=== PATIENT | female | born 1965 | race Two or more races ===

== ENCOUNTER 2021-01-07 18:51 | Emergency (ER) | payer SELFPAY ==
[~2021-01-07] VITALS: Ht 144.8 cm; Wt 73.0 kg
--- NOTE | 2021-01-07 19:11 | Emergency Room Report ---
History of Present Illness General Chief Complaint: Headache Source: Patient Present Illness HPI Disclaimer: Please note that this report is being documented using DRAG[employer] technology. This can lead to erroneous entry secondary to incorrect interpretation by the dictating instrument. HPI: 55-year-old female presents for evaluation of headache. She reports occipital tension and throbbing pain for the past week. Denies trauma. Denies nausea or vomiting. Denies changes in hearing, balance or coordination or vision. Has been using Tylenol without significant help. Headaches seem to be worse at night. Over the past 3 days she notes intermittent yoej-uzu-xqliewq sensation over the right upper lip. Denies changes in motor function, strength, coordination otherwise. No prior history of migraines. Takes no other medications. PMH: Denied PSH: Reviewed Allergies: Denied Social Hx: Non-smoker Allergies: Coded Allergies: No Known Allergies (Unverified , 01/07/21) COVID-19 Screening Contact w/high risk pt: No Experienced COVID-19 symptoms?: No COVID-19 Testing performed MANAGER OPERATIONS: Yes COVID-19 Screening: Negative COVID-19 COVID-19 Testing Source: nasal Nursing Documentation-PMH Past Medical History: No Stated History Review of Systems All Other Systems: negative except mentioned in HPI Physical Exam Vital Signs Date Time Temp Pulse Resp B/P (MAP) Pulse Ox O2 Delivery O2 Flow Rate FiO2 01/07/21 18:58 97.5 73 16 142/87 (105) 98 Room Air General: Awake and alert, no acute distress HEENT: NC/AT. EOMI. PERRLA. Visual pickett are full. No nystagmus. Facial expressions are symmetrical. No facial droop. Cardiovascular: RRR. S1 and S2 normal. No murmur appreciated Resp: Normal work of breathing. No cough, wheezing or crackles appreciated Abdomen: Abdomen is soft, nondistended. Nontender Skin: Intact. No abrasions, laceration or rash over the exposed skin MSK: Normal tone and bulk. Moving all extremities. No obvious deformity. There is no drift in the upper or lower extremities bilaterally. Neuro: Awake and alert. Mentating appropriately. Facial expression symmetrical. No dysarthria, no ataxia on xasexp-pwtv-qwfjbw or pesn-sn-lubf testing. Sensation to light touch is intact over the upper and lower extremities. The patient has intact speech with good repetition, comprehension. Fund of knowledge is full. No aphasia, no neglect. NIH: 0 Medical Decision Making Diagnostic Impression: Primary Impression: Headache ER Course 55-year-old female presents for evaluation of 1 week headache. Differential includes was not limited to tension headache, cluster headache, migraine headache, complex migraine, generalized headache, intracranial bleed, new cranial mass among others. CT scan was obtained finds no mass, no bleed and no other abnormalities. Patient's NIH score is 0. Received migraine cocktail consisting of IV fluids, Toradol, Reglan and Benadryl which resolved her headache. She had some tension in the back of her neck for which I will prescribe Robaxin. She will follow up with her clinic for referral to neurology to further investigate headache should they return. Instructed to return new or worsening symptoms. CT/MRI/US Diagnostic Results CT/MRI/US Diagnostic Results : Impression Final Report EXAM: CT Head Without Intravenous Contrast CLINICAL HISTORY: H/A TECHNIQUE: Axial computed tomography images of the head/brain without intravenous contrast. CTDI is 53.4 mGy and DLP is 965.4 mGy-cm. One or more of the following dose r eduction techniques were used: automated exposure control, adjustment of the mA and/or kV according to patient size, use of iterative reconstruction technique. COMPARISON: No relevant prior studies available. FINDINGS: Brain: No hemorrhage, edema or evidence of mass-effect. No significant white matter disease. Ventricles: Unremarkable. No ventriculomegaly. Bones/joints: Unremarkable. Soft tissues: Unremarkable. Sinuses: Unremarkable as visualized. Mastoid air cells: No mastoid effusion. Orbits: Symmetric. IMPRESSION: Normal head/brain CT. Radiologist: Naseem Lucas M.D. Electronically Signed: 01/07/21 21:21 Study ready at 21:07 and initial results transmitted at 21:21 Last Vital Signs Date Time Temp Pulse Resp B/P (MAP) Pulse Ox O2 Delivery O2 Flow Rate FiO2 01/07/21 18:58 97.5 73 16 142/87 (105) 98 Room Air Disposition: HOME, SELF-CARE Condition: Stable Scripts Methocarbamol* (ROBAXIN-750*) 750 Mg Tablet 750 MG PO QID, #28 TAB 0 Refills Prov: Titi Wynn MD 01/07/21 Titi Wynn MD Jan 07, 2021 19:11
--- NOTE | 2021-01-07 19:28 | NUR ---
ED Nurse Note: Pt ambulated into ED. AAO x4. C/O posterior head pain x1 week with right side facial numbness.
[2021-01-07 20:47] VITALS: BP 114/64
--- NOTE | 2021-01-07 20:47 | NUR ---
ED Nurse Note: CT has been closed down for terminal clean. Pt is resting. No new needs identified at this time.
--- NOTE | 2021-01-07 21:10 | NUR ---
ED Nurse Note: Pt returned from CT. No new needs identified at this time.
--- NOTE | 2021-01-07 21:21 | Diagnostic Imaging Report ---
EXAM: CT Head Without Intravenous Contrast CLINICAL HISTORY: H/A TECHNIQUE: Axial computed tomography images of the head/brain without intravenous contrast. CTDI is 53.4 mGy and DLP is 965.4 mGy-cm. One or more of the following dose reduction techniques were used: automated exposure control, adjustment of the mA and/or kV according to patient size, use of iterative reconstruction technique. COMPARISON: No relevant prior studies available. FINDINGS: Brain: No hemorrhage, edema or evidence of mass-effect. No significant white matter disease. Ventricles: Unremarkable. No ventriculomegaly. Bones/joints: Unremarkable. Soft tissues: Unremarkable. Sinuses: Unremarkable as visualized. Mastoid air cells: No mastoid effusion. Orbits: Symmetric. IMPRESSION: Normal head/brain CT.
[2021-01-07] MEDS ORDERED: Metoclopramide 10mg/2ml Inj IVP ONE (21:30)
[2021-01-07] MEDS ORDERED: DiphenhydrAMINE 50mg/ml Inj IVP ONE (21:30)
[2021-01-07] MEDS ORDERED: Ketorolac 30mg Inj IV ONE (21:30)
[2021-01-07] MEDS ORDERED: ROBAXIN-750750 MG PO (21:43)
--- NOTE | 2021-01-07 21:45 | NUR ---
ED Nurse Note: Pt returned from CT. IV started, medications administered as ordered. Pt reports no new needs at this time.
[2021-01-07 21:46] VITALS: BP 121/57
--- NOTE | 2021-01-07 22:18 | NUR ---
ED Nurse Note: [phone] [place]
--- NOTE | 2021-01-07 23:05 | NUR ---
ER DISCHARGE NOTE: Patient is cleared to be discharged per ER MD, pt is aao x4, on room air, with stable vital signs. pt was given d/c and prescription instructions, pt was able to verbalize understanding, pt id band and iv site removed without complications. pt is able to ambulate with steady gait. pt took all belongings.
[2021-01-07 23:06] VITALS: BP 100/60
== END 2021-01-07 23:07 | disposition home or self-care (01) ==
LOC: EMR 19:30
DX: R51.9 Headache, unspecified (principal)
CPT/HCPCS: 70450; 96361; 96374; 96375; 99284; J1200; J1885; J2765; J7030

== ENCOUNTER 2021-01-13 12:26 | Emergency (ER) | payer SELFPAY ==
[~2021-01-13] VITALS: Ht 149.9 cm; Wt 68.5 kg
[~2021-01-13 12:26] MED LIST: ROBAXIN-750750 MG PO
--- NOTE | 2021-01-13 12:46 | NUR ---
ED Nurse Note: Dr Velazquez was notified of patient's symtoms of mouth numbness, headache and weakness x 4 days.
--- NOTE | 2021-01-13 16:07 | Emergency Room Report ---
History of Present Illness General Chief Complaint: Generalized Weakness Source: Patient Present Illness HPI Disclaimer: Please note that this report is being documented using [employer] technology. This can lead to erroneous entry secondary to incorrect interpretation by the dictating instrument. HPI: 55-year-old female presents for evaluation of headache. Patient was seen in the emergency department last week with similar complaints of intermittent headache and facial numbness/paresthesias on the left side above the left lip. Currently she is asymptomatic. CT scan was performed and unremarkable. She was sent to follow-up with her PMD. She has been having the symptoms persistently over the past few days and her PMD sent her to the ED for MRI. PMH: Reviewed PSH: Reviewed Allergies: Denied Social Hx: Non-smoker Allergies: Coded Allergies: No Known Allergies (Unverified , 01/07/21) COVID-19 Screening Contact w/high risk pt: No Experienced COVID-19 symptoms?: No COVID-19 Testing performed PERSONALIZATION SPECIALIST: No Nursing Documentation-PMH Past Medical History: No Stated History Review of Systems All Other Systems: negative except mentioned in HPI Physical Exam Vital Signs Date Time Temp Pulse Resp B/P (MAP) Pulse Ox O2 Delivery O2 Flow Rate FiO2 01/13/21 12:40 97.9 75 16 132/84 (100) 97 Room Air General: Awake and alert, no acute distress HEENT: NC/AT. EOMI. PERRLA. Visual pickett are full. No nystagmus. Facial expressions are symmetrical. No facial droop. Cardiovascular: RRR. S1 and S2 normal. No murmur appreciated Resp: Normal work of breathing. No cough, wheezing or crackles appreciated Abdomen: Abdomen is soft, nondistended. Nontender Skin: Intact. No abrasions, laceration or rash over the exposed skin MSK: Normal tone and bulk. Moving all extremities. No obvious deformity. There is no drift in the upper or lower extremities bilaterally. Neuro: Awake and alert. Mentating appropriately. Facial expression symmetrical. No dysarthria, no ataxia on hmkawq-qkvw-efrfll or kzkm-xl-zerf testing. Sensation to light touch is intact over the upper and lower extremities. The patient has intact speech with good repetition, comprehension. Fund of knowledge is full. No aphasia, no neglect. NIH: 0 Medical Decision Making Diagnostic Impression: Primary Impression: Headache Additional Impressions: Elevated liver enzymes Small vessel disease ER Course 55-year-old female returns to the ER complaining of persistent headaches and left-sided facial paresthesias. Sent in by PMD for MRI. Differential includes is not limited to migraine headache with complex feature, Martin's palsy, CVA, trigeminal neuralgia, space-occupying lesion, peripheral nerve issue, giant cell arteritis. MRI shows likely small vessel disease but no infarct, no mass, no bleed. Labs show slightly elevated liver enzymes. May be fatty liver. This can be followed up by her PMD. Otherwise, ESR and CRP are negative making giant cell arteritis unlikely. Patient may have trigeminal neuralgia but given her elevated liver function studies I will not start carbamazepine at this time instead will elect to give a short prescription for sumatriptan. She can f ollow-up with her PMD for referral to neurology regarding today's work-up and recent headaches. Stable for outpatient follow-up. Instructed to return with new or worsening symptoms. Laboratory Tests Test 01/13/21 17:31 White Blood Count 7.1 K/UL (4.8-10.8) Red Blood Count 4.87 M/UL (4.20-5.40) Hemoglobin 14.9 G/DL (12.0-16.0) Hematocrit 44.4 % (37.0-47.0) Mean Corpuscular Volume 91 FL (80-99) Mean Corpuscular Hemoglobin 30.6 PG (27.0-31.0) Mean Corpuscular Hemoglobin Concent 33.6 G/DL (32.0-36.0) Red Cell Distribution Width 13.0 % (11.6-14.8) Platelet Count 205 K/UL (150-450) Mean Platelet Volume 10.5 FL (6.5-10.1) H Neutrophils (%) (Auto) 40.0 % (45.0-75.0) L Lymphocytes (%) (Auto) 49.4 % (20.0-45.0) H Monocytes (%) (Auto) 8.0 % (1.0-10.0) Eosinophils (%) (Auto) 1.3 % (0.0-3.0) Basophils (%) (Auto) 1.4 % (0.0-2.0) Erythrocyte Sedimentation Rate 13 MM/HR (0-30) Sodium Level 141 MMOL/L (136-145) Potassium Level 4.8 MMOL/L (3.5-5.1) Chloride Level 106 MMOL/L (98-107) Carbon Dioxide Level 26 MMOL/L (21-32) Anion Gap 10 mmol/L (5-15) Blood Urea Nitrogen 11 mg/dL (7-18) Creatinine 0.6 MG/DL (0.55-1.30) Estimated Glomerular Filtration Rate > 60 mL/min (>60) Glucose Level 119 MG/DL (74-106) H Calcium Level 9.5 MG/DL (8.5-10.1) Phosphorus Level 3.5 MG/DL (2.5-4.9) Magnesium Level 2.3 MG/DL (1.8-2.4) Total Bilirubin 0.7 MG/DL (0.2-1.0) Direct Bilirubin 0.1 MG/DL (0.0-0.3) Aspartate Amino Transferase (AST) 160 U/L (15-37) H Alanine Aminotransferase (ALT) 147 U/L (12-78) H Alkaline Phosphatase 207 U/L (46-116) H C-Reactive Protein, Quantitative < 0.4 mg/dL (0.00-0.90) Total Protein 8.4 G/DL (6.4-8.2) H Albumin 4.0 G/DL (3.4-5.0) CT/MRI/US Diagnostic Results CT/MRI/US Diagnostic Results : Impression Final Report EXAM: MR Head Without Intravenous Contrast CLINICAL HISTORY: H/A TECHNIQUE: Magnetic resonance images of the head/brain without intravenous contrast in multiple planes. COMPARISON: 01/07/2021. FINDINGS: Brain: Minimal increased T2 signal in the periventricular and subcortical cerebral white matter. No hemorrhage. No acute infarct. Ventricles: Unremarkable. No ventriculomegaly. Bones/joints: Unremarkable. Sinuses: Unremarkable as visualized. No acute sinusitis. Mastoid air cells: Unremarkable as visualized. No mastoid effusion. Orbits: Unremarkable as visualized. IMPRESSION: 1. No acute infarction. No acute intracranial pathology. 2. Minimal increased T2 signal in the periventricular and subcortical cerebral white matter. Findings are nonspecific but commonly chronic small vessel ischemic disease. Radiologist: Mukesh Redd MD Electronically Signed: 01/13/21 17:43 Study ready at 17:30 and initial results transmitted at 17:43 Last Vital Signs Date Time Temp Pulse Resp B/P (MAP) Pulse Ox O2 Delivery O2 Flow Rate FiO2 01/13/21 12:40 97.9 75 16 132/84 (100) 97 Room Air Disposition: HOME, SELF-CARE Condition: Stable Scripts Sumatriptan Succinate* (IMITREX*) 50 Mg Tablet 50 MG ORAL DAILY PRN MIGRAINE, #15 TAB Prov: Titi Wynn MD 01/13/21 Titi Wynn MD Jan 13, 2021 16:07
--- NOTE | 2021-01-13 17:41 | NUR ---
Patient presents to the ER with c/o left sided facial numbness and headache. She presented to the ER last week with same complaint but her CT results were unremarkable from that visit. She was sent to follow-up with her PMD. She has been having the symptoms persistently over the past few days and her PMD sent her to the ED for MRI. AAOX4. Portuguese speaking. Independently ambulatory.
--- NOTE | 2021-01-13 17:43 | Diagnostic Imaging Report ---
EXAM: MR Head Without Intravenous Contrast CLINICAL HISTORY: H/A TECHNIQUE: Magnetic resonance images of the head/brain without intravenous contrast in multiple planes. COMPARISON: 01/07/2021. FINDINGS: Brain: Minimal increased T2 signal in the periventricular and subcortical cerebral white matter. No hemorrhage. No acute infarct. Ventricles: Unremarkable. No ventriculomegaly. Bones/joints: Unremarkable. Sinuses: Unremarkable as visualized. No acute sinusitis. Mastoid air cells: Unremarkable as visualized. No mastoid effusion. Orbits: Unremarkable as visualized. IMPRESSION: 1. No acute infarction. No acute intracranial pathology. 2. Minimal increased T2 signal in the periventricular and subcortical cerebral white matter. Findings are nonspecific but commonly chronic small vessel ischemic disease.
[2021-01-13 17:44] LABS: BASOPHILS % (AUTO) 1.4 % (0.0-2.0); EOSINOPHILS % (AUTO) 1.3 % (0.0-3.0); HEMATOCRIT 44.4 % (37.0-47.0); HEMOGLOBIN 14.9 G/DL (12.0-16.0); LYMPHOCYTES % (AUTO) 49.4 % (20.0-45.0); MEAN CORPUSCULAR VOLUME 91 FL (80-99); PLATELET COUNT 205 K/UL (150-450); RED BLOOD COUNT 4.87 M/UL (4.20-5.40); WHITE BLOOD COUNT 7.1 K/UL (4.8-10.8)
[2021-01-13 18:13] LABS: ANION GAP 10 mmol/L (5-15); BLOOD UREA NITROGEN 11 mg/dL (7-18); CALCIUM 9.5 MG/DL (8.5-10.1); CARBON DIOXIDE 26 MMOL/L (21-32); CHLORIDE 106 MMOL/L (98-107); CREATININE 0.6 MG/DL (0.55-1.30); POTASSIUM 4.8 MMOL/L (3.5-5.1); SODIUM 141 MMOL/L (136-145)
[2021-01-13 18:16] LABS: PHOSPHORUS 3.5 MG/DL (2.5-4.9)
[2021-01-13 18:54] LABS: ALANINE AMINOTRANSFERASE 147 U/L (12-78); ALKALINE PHOSPHATASE 207 U/L (46-116); ASPARTATE AMINO TRANSFERASE 160 U/L (15-37); BILIRUBIN,TOTAL 0.7 MG/DL (0.2-1.0)
[2021-01-13 18:55] LABS: BILIRUBIN,DIRECT 0.1 MG/DL (0.0-0.3)
[2021-01-13] MEDS ORDERED: IMITREX50 MG ORAL (19:01)
[2021-01-13 19:09] VITALS: BP 126/84
== END 2021-01-13 19:32 | disposition home or self-care (01) ==
LOC: EMR 19:00
DX: R51.9 Headache, unspecified (principal); I73.9 Peripheral vascular disease, unspecified; R79.89 Other specified abnormal findings of blood chemistry
CPT/HCPCS: 36415; 70551; 80048; 80076; 83735; 84100; 85025; 85651; 86140; 99284